=== PATIENT | male | born 2000 | race African-American/Black ===

== ENCOUNTER 2023-10-12 15:46 | Inpatient (IN) | payer OTHER ==
[~2023-10-12] VITALS: Ht 167.6 cm; Wt 68.6 kg
[2023-10-12 18:10] LABS: HEMATOCRIT 44.9 % (42.0-52.0); MEAN CORPUSCULAR HEMOGLOBIN 31.3 pg (27.0-33.0); MEAN CORPUSCULAR HGB CONC 33.4 g/dl (32.0-36.5); MEAN CORPUSCULAR VOLUME 93.7 fl (80.0-96.0); PLATELET COUNT, AUTOMATED 219 10^3/uL (150-450); RED BLOOD COUNT 4.79 10^6/uL (4.30-6.10); WHITE BLOOD COUNT 6.7 10^3/uL (4.0-10.0)
[2023-10-12 18:38] LABS: AMPHETAMINES LEVEL URINE NEGATIVE (NEGATIVE); BARBITURATES URINE NEGATIVE (NEGATIVE); BENZODIAZEPINES URINE NEGATIVE (NEGATIVE); COCAINE METABOLITE URINE NEGATIVE (NEGATIVE); METHADONE URINE NEGATIVE (NEGATIVE)
[2023-10-12 18:39] LABS: CANNABINOIDS URINE NEGATIVE (NEGATIVE); OPIATES URINE NEGATIVE (NEGATIVE); PHENCYCLIDINE URINE NEGATIVE (NEGATIVE)
[2023-10-12 18:51] LABS: ETHYL ALCOHOL (ETHANOL) < 0.003 % (0.000-0.010)
[2023-10-12 18:52] LABS: SALICYLATE LEVEL < 3.0 MG/DL (<30)
[2023-10-12 18:53] LABS: ALBUMIN 4.1 G/DL (3.2-5.2); ALKALINE PHOSPHATASE 71 U/L (46-116); ALT/SGPT 18 U/L (7.0-40); AST/SGOT 22 U/L (<34); BILIRUBIN,DIRECT 0.2 MG/DL (<0.4); BILIRUBIN,TOTAL 0.7 MG/DL (0.3-1.2); BLOOD UREA NITROGEN 8 MG/DL (9-23); CALCIUM LEVEL 8.5 MG/DL (8.5-10.1); CARBON DIOXIDE LEVEL 27 MMOL/L (20-31); CHLORIDE LEVEL 107 MMOL/L (98-107); CREATININE FOR GFR 0.84 MG/DL (0.70-1.30); GLOMERULAR FILTRATION RATE > 60.0 (>60); GLUCOSE, FASTING 81 MG/DL (60-100); POTASSIUM SERUM 3.8 MMOL/L (3.5-5.1); SODIUM LEVEL 140 MMOL/L (136-145); TOTAL PROTEIN 6.8 G/DL (5.7-8.2)
[2023-10-12 18:55] LABS: THYROID STIMULATING HORMONE 1.138 uIU/ML (0.55-4.78)
[2023-10-13] MEDS ORDERED: HOME MED LIST COMPLETE! XX SCH (03:00)
[2023-10-13 09:16] LABS: APPEARANCE, URINE HAZY (CLEAR); BACTERIA, URINE AUTO NEGATIVE (NEGATIVE); BILIRUBIN, URINE AUTO NEGATIVE (NEGATIVE); BLOOD, URINE BLOOD NEGATIVE (NEGATIVE); COLOR, URINE YELLOW (YELLOW); GLUCOSE, URINE (UA) AUTO NEGATIVE (NEGATIVE); KETONE, URINE AUTO NEGATIVE (NEGATIVE); LEUKOCYTE ESTERASE, URINE AUTO NEGATIVE (NEGATIVE); MUCUS, URINE SMALL (NEGATIVE); NITRITE, URINE AUTO NEGATIVE (NEGATIVE); PROTEIN, URINE AUTO NEGATIVE (NEGATIVE); RBC, URINE AUTO 0 /HPF (0-3); SPECIFIC GRAVITY URINE AUTO 1.027 (1.002-1.035); SQUAMOUS EPITHELIAL CELL UR AU 0 /HPF (0-6); WBC, URINE AUTO 1 /HPF (0-3)
[2023-10-13] MEDS ORDERED: MAALOX 30 ML SUSP *UDC PO PRN (17:30)
[2023-10-13] MEDS ORDERED: MOM 30ML SUSPENSION UDC PO PRN (17:30)
[2023-10-13] MEDS ORDERED: ACETAMINOPHEN TAB 650MG DOSE (2X325MG) PO PRN (17:30)
[2023-10-13] MEDS ORDERED: diphenhydrAMINE 25MG CAP PO PRN (17:30)
[2023-10-13] MEDS ORDERED: IBUPROFEN 400MG TAB PO PRN (17:30)
[2023-10-14 01:09] VITALS: BP 121/75; TEMP 96.8; O2SAT 98
[2023-10-14 06:39] VITALS: BP 106/58; TEMP 98; O2SAT 100
[2023-10-14 16:00] VITALS: BP 119/67; TEMP 98.3; O2SAT 97
[2023-10-15 05:43] VITALS: BP 109/60; TEMP 98.2; O2SAT 98
[2023-10-15 16:17] VITALS: BP 117/62; TEMP 97.6; O2SAT 100
[2023-10-15] MEDS: traZODone 50 MG TAB PO PRN (21:02)
[2023-10-16 06:41] VITALS: BP 101/58; TEMP 96.9; O2SAT 100
[2023-10-16 16:17] VITALS: BP 108/62; TEMP 97.6; O2SAT 98
[2023-10-17 06:38] VITALS: BP 118/69; TEMP 97.4; O2SAT 99
[2023-10-17 16:20] VITALS: BP 114/62; TEMP 97.6; O2SAT 99
[2023-10-18 06:21] VITALS: BP 108/60; TEMP 97.1; O2SAT 98
== END 2023-10-18 12:31 | disposition home or self-care (01) | DRG 881 ==
LOC: M ED 15:46 → M ED INP 10-13 17:26 → M PSY 10-14 00:07
PROVIDERS: ADMIT Psychiatry & Neurology Psychiatry; ATTEND Psychiatry & Neurology Psychiatry
DX: F32.A Depression, unspecified (principal); R45.851 Suicidal ideations; R45.850 Homicidal ideations; F17.210 Nicotine dependence, cigarettes, uncomplicated

== ENCOUNTER 2023-10-30 10:04 | Inpatient (IN) | payer OTHER ==
[~2023-10-30] VITALS: Ht 167.6 cm; Wt 68.2 kg
[2023-10-30] MEDS: FOLIC ACID 1MG TAB PO SCH (09:00)
[2023-10-30] MEDS: MULTIVITAMINS/MINERALS THERAP 1 TAB PO SCH (09:00)
[2023-10-30 10:26] LABS: HEMATOCRIT 46.9 % (42.0-52.0); HEMOGLOBIN 15.8 g/dl (13.5-17.5); MEAN CORPUSCULAR HEMOGLOBIN 31.2 pg (27.0-33.0); MEAN CORPUSCULAR HGB CONC 33.7 g/dl (32.0-36.5); MEAN CORPUSCULAR VOLUME 92.5 fl (80.0-96.0); PLATELET COUNT, AUTOMATED 196 10^3/uL (150-450); RED BLOOD COUNT 5.07 10^6/uL (4.30-6.10); WHITE BLOOD COUNT 5.4 10^3/uL (4.0-10.0)
[2023-10-30 10:49] LABS: ETHYL ALCOHOL (ETHANOL) 0.022 % (0.000-0.010)
[2023-10-30 10:50] LABS: SALICYLATE LEVEL < 3.0 MG/DL (<30)
[2023-10-30 10:51] LABS: ALKALINE PHOSPHATASE 76 U/L (46-116); ALT/SGPT 23 U/L (7.0-40); AST/SGOT 15 U/L (<34); BILIRUBIN,DIRECT 0.2 MG/DL (<0.4); BILIRUBIN,TOTAL 0.5 MG/DL (0.3-1.2); BLOOD UREA NITROGEN 8 MG/DL (9-23); CALCIUM LEVEL 9.3 MG/DL (8.5-10.1); CARBON DIOXIDE LEVEL 27 MMOL/L (20-31); CHLORIDE LEVEL 106 MMOL/L (98-107); GLOMERULAR FILTRATION RATE > 60.0 (>60); GLUCOSE, FASTING 74 MG/DL (60-100); POTASSIUM SERUM 3.9 MMOL/L (3.5-5.1); SODIUM LEVEL 140 MMOL/L (136-145)
[2023-10-30 10:53] LABS: THYROID STIMULATING HORMONE 0.981 uIU/ML (0.55-4.78)
[2023-10-30 10:59] LABS: AMPHETAMINES LEVEL URINE NEGATIVE (NEGATIVE)
[2023-10-30 11:00] LABS: BARBITURATES URINE NEGATIVE (NEGATIVE); BENZODIAZEPINES URINE NEGATIVE (NEGATIVE); CANNABINOIDS URINE NEGATIVE (NEGATIVE); COCAINE METABOLITE URINE NEGATIVE (NEGATIVE); METHADONE URINE NEGATIVE (NEGATIVE); OPIATES URINE NEGATIVE (NEGATIVE); PHENCYCLIDINE URINE NEGATIVE (NEGATIVE)
[2023-10-30] MEDS ORDERED: HOME MED LIST COMPLETE! XX SCH (11:35)
[2023-10-30] MEDS ORDERED: IBUPROFEN 400MG TAB PO PRN (15:15)
[2023-10-30] MEDS ORDERED: diphenhydrAMINE 25MG CAP PO PRN (15:15)
[2023-10-30] MEDS ORDERED: LORazepam 2 MG TAB PO PRN (15:15)
[2023-10-30] MEDS ORDERED: ACETAMINOPHEN TAB 650MG DOSE (2X325MG) PO PRN (15:15)
[2023-10-30] MEDS ORDERED: MAALOX 30 ML SUSP *UDC PO PRN (15:15)
[2023-10-30] MEDS ORDERED: OLANZapine ORAL DISINTEGRATING TAB 5MG PO PRN (15:15)
[2023-10-30] MEDS ORDERED: MOM 30ML SUSPENSION UDC PO PRN (15:15)
[2023-10-30 16:19] VITALS: BP 122/71; TEMP 97.9; O2SAT 100
[2023-10-30] MEDS: THIAMINE 100 MG TAB PO SCH (17:03)
[2023-10-30] MEDS: traZODone 50 MG TAB PO PRN (20:12)
[2023-10-30 22:00] VITALS: BP 109/67
[2023-10-31 06:00] VITALS: BP 116/59
[2023-10-31 06:20] VITALS: BP 116/59; TEMP 99.1; O2SAT 98
[2023-10-31] MEDS ORDERED: NICOTINE 7 MG/24 HR TRANSDERMAL TD PRN (10:25)
[2023-10-31 14:15] VITALS: BP 110/71
[2023-10-31 18:09] VITALS: BP 132/63; TEMP 98.1; O2SAT 94
[2023-10-31 22:03] VITALS: BP 111/74
[2023-11-01 06:20] VITALS: BP 138/64
[2023-11-01 06:26] VITALS: BP 138/64; TEMP 97; O2SAT 97
[2023-11-01 17:32] VITALS: BP 127/86; TEMP 97.3; O2SAT 99
[2023-11-02 06:18] VITALS: BP 111/53; TEMP 97.1; O2SAT 97
[2023-11-02 18:27] VITALS: BP 126/66; TEMP 97.2
[2023-11-03 06:31] VITALS: BP 122/72; TEMP 97.2; O2SAT 97
== END 2023-11-03 11:33 | disposition home or self-care (01) | DRG 882 ==
LOC: EDBD 10:04 → M ED 10:04 → M ED INP 15:12 → M PSY 16:15
PROVIDERS: ADMIT Student in an Organized Health Care Education/Training Program; ATTEND Student in an Organized Health Care Education/Training Program
DX: F43.25 Adjustment disorder with mixed disturbance of emotions and conduct (principal); R45.851 Suicidal ideations; R45.850 Homicidal ideations; F17.200 Nicotine dependence, unspecified, uncomplicated